=== PATIENT | male | born 1980 | race African-American/Black ===

== ENCOUNTER 2022-10-23 22:09 | Emergency (ER) | payer MEDICAID ==
[~2022-10-23] VITALS: Ht 188 cm; Wt 117.9 kg
[2022-10-23 22:33] VITALS: BP_SYST 138
[2022-10-23 23:55] LABS: BASOPHILS % (AUTO) 0.6 % (0.0-2.0); EOSINOPHILS # (AUTO) 0.3 K/uL (0.0-0.4); HEMOGLOBIN 15.3 g/dL (14.0-18.0); LYMPHOCYTES # (AUTO) 2.5 K/uL (1.0-5.5); LYMPHOCYTES % (AUTO) 50.2 % (20.5-51.5); MEAN CORPUSCULAR HEMOGLOBIN 30 pg (27-31); MEAN CORPUSCULAR HGB CONC 34 % (32-36); MEAN CORPUSCULAR VOLUME 90 fL (79.0-98.0); MONOCYTES # (AUTO) 0.6 K/uL (0.0-1.0); NEUTROPHILS # (AUTO) 1.6 K/uL (1.8-7.7); NEUTROPHILS % (AUTO) 32.2 % (40.0-70.0); PLATELET COUNT (AUTO) 201 K/uL (130-430); RED BLOOD CELL COUNT(AUTO) 5.02 MIL/uL (4.2-6.2); RED CELL DISTRIBUTION WIDTH 13.5 % (9.0-15.0); WHITE BLOOD COUNT (AUTO) 5.1 K/uL (4.8-10.8)
[2022-10-24 00:27] LABS: CALCIUM 8.6 mg/dL (8.4-11.0); CREATININE 1.17 mg/dL (0.55-1.30)
[2022-10-24 00:32] LABS: ALBUMIN 3.8 g/dL (3.4-4.8); TOTAL BILIRUBIN 0.5 mg/dL (0.0-1.0)
[2022-10-24] MEDS ORDERED: HYDR30CR79 TP (01:11)
[2022-10-24] MEDS ORDERED: POLY119P2 PO (01:11)
== END 2022-10-24 01:25 | disposition home or self-care (01) ==
LOC: SED 22:09
DX: K62.89 Other specified diseases of anus and rectum (principal); K92.1 Melena
CPT/HCPCS: 36415; 80053; 85025; 99283

== ENCOUNTER 2023-04-01 13:31 | Emergency (ER) | payer MEDICAID ==
[~2023-04-01] VITALS: Ht 188 cm; Wt 117.9 kg
[~2023-04-01 13:31] MED LIST: HYDR30CR79 TP; POLY119P2 PO
[2023-04-01 13:56] VITALS: BP_SYST 120; PULSE 69; RESP 16; TEMP 97.8; O2SAT 99
[2023-04-01] MEDS ORDERED: KETOROLAC TROMETHAMINE 60 MG/2 ML VIAL IM ONE (14:15)
[2023-04-01] MEDS ORDERED: IBUP-1971 PO (16:12)
[2023-04-01] MEDS ORDERED: DICL20GE TP (16:12)
[2023-04-01 16:27] VITALS: BP_SYST 138; PULSE 72; RESP 16; TEMP 97.6; O2SAT 97
== END 2023-04-01 16:24 | disposition home or self-care (01) ==
LOC: SED 13:31
DX: M50.122 Cervical disc disorder at C5-C6 level with radiculopathy (principal); M25.511 Pain in right shoulder; R20.2 Paresthesia of skin; Z79.899 Other long term (current) drug therapy
CPT/HCPCS: 99285; 72125; 93005; 73030; 76376; 96372; J1885